=== PATIENT | female | born 1955 | race Two or more races ===

== ENCOUNTER 2018-12-04 12:09 | Inpatient (IN) | payer OTHER ==
[~2018-12-04] VITALS: Ht 160 cm; Wt 65.8 kg
[2018-12-04] MEDS ORDERED: ASPirin 81 mg TAB PO ONE (12:30)
[2018-12-04] MEDS ORDERED: EPINEPHrine HCL 1 MG/1 ML AMP ONE (12:34)
[2018-12-04] MEDS ORDERED: ATROPINE SULFATE 1 MG/1 ML VIAL ONE (12:34)
[2018-12-04] MEDS ORDERED: ANGIOMAX 250 MG VIAL IV ONE (12:34)
[2018-12-04] MEDS ORDERED: SODIUM CHL 0.9% 50 ML ONE (12:35)
[2018-12-04] MEDS ORDERED: fentaNYL CITRATE 100 MCG/2 ML VL ONE (12:35)
[2018-12-04] MEDS ORDERED: DOPamine 1600MCG/ML D5W 0 ML IV ONE (12:35)
[2018-12-04] MEDS ORDERED: MIDAZOLAM HCL 1MG/1ML-2 ML VIAL ONE (12:35)
[2018-12-04] MEDS ORDERED: LIDOCAINE 2%HCL (LOCAL ANESTH.) INJ 20ML MDV ONE (12:36)
[2018-12-04] MEDS ORDERED: IOHEXOL 350 MG/ML 100ML IJ ONE (12:36)
[2018-12-04] MEDS ORDERED: EPTIFIBATIDE INJ (2MG/ML) 10ML VIAL IV ONE (13:07)
[2018-12-04] MEDS ORDERED: TICAGRELOR 90 MG TAB ONE ×2 (13:17→22:03)
[2018-12-04 13:40] LABS: Basophils # (auto) 0.1 uL; Basophils % (auto) 0.6 % (0.0-2.0); Eosinophils # (auto) 0.2 uL; Eosinophils % (auto) 1.9 % (0.0-7.0); Hematocrit 29.2 % (36.0-46.0); Hemoglobin 9.8 g/dL (12.2-16.2); Lymphocytes # (auto) 1.7 uL; Lymphocytes % (auto) 21.7 % (10.0-50.0); Mean Corpuscular Hemoglobin 31.2 pg (28.0-32.0); Mean Corpuscular Hgb Conc. 33.3 g/dL (32.0-36.0); Mean Corpuscular Volume 93.6 fL (80.0-100.0); Monocytes # (auto) 0.4 uL; Monocytes % (auto) 5.2 % (0.0-12.0); Neutrophils # (auto) 5.7 uL; Neutrophils % (auto) 70.6 % (37.0-80.0); Nucleated Red Blood Cells % 0.1 %; Platelet Count (auto) 248 10^3/uL (140-450); Red Blood Cells 3.13 10^6/uL (4.0-5.20); Red Cell Distribution Width 13.5 % (11.8-14.3)
[2018-12-04] MEDS ORDERED: MORPHINE SULF INJ 2 MG/ML SYRINGE 1ML IV PRN ×2 (13:45)
[2018-12-04] MEDS ORDERED: ACETAMINOPHEN 500 MG TAB PO PRN (13:45)
[2018-12-04] MEDS ORDERED: DEXTROSE (50%) 50ML SYRG IV PRN (13:45)
[2018-12-04] MEDS ORDERED: ONDANSETRON HCL 4 MG/2 ML VIAL IV PRN (13:45)
[2018-12-04] MEDS ORDERED: NITROGLYCERIN 0.4 MG SL TAB SL PRN (13:45)
[2018-12-04] MEDS ORDERED: hydrALAZINE HCL 20 MG/ML VL IV PRN (13:45)
[2018-12-04] MEDS ORDERED: HYDROcodone-ACET 5/325MG TAB PO PRN (13:45)
[2018-12-04 14:01] LABS: Calcium 7.5 mg/dL (8.5-10.1); Magnesium 1.8 mg/dL (1.6-2.6); Potassium 4.1 mmol/L (3.5-5.1)
--- NOTE | 2018-12-04 14:10 | NUR ---
Received report from Web Site Project Manager ANTIONE Shultz, patient has to lay flat in bed for two hours post PTCA with stent placement.
[2018-12-04 14:17] LABS: BUN/Creatinine Ratio 21.8
[2018-12-04 14:18] LABS: Bilirubin, Total 0.2 mg/dL (0.2-1.0); Total Protein 6.1 g/dL (6.4-8.2)
[2018-12-04 14:20] LABS: Cholesterol 162 mg/dL (< 200); HDL Cholesterol 37 mg/dL (40-59); Triglycerides 78 mg/dL (< 150)
[2018-12-04 14:21] LABS: LDL Cholesterol 120 mg/dL (< 100)
[2018-12-04 15:00] VITALS: BP 147/72
--- NOTE | 2018-12-04 15:00 | NUR ---
Patient from Extension Service Specialist post PTCA and stent placement to the right coronary artery. Patient to lay flat in bed for two hours. Patient refused bedpan. Patient made aware she has pad cair underneath, she can urinate and she will be cleaned when she's done.
--- NOTE | 2018-12-04 15:00 | NUR ---
Dressing on right groin clean, dry and intact.
--- NOTE | 2018-12-04 15:20 | NUR ---
Family member at bedside.
[2018-12-04] MEDS: SODIUM CHLORIDE 0.9% 1,000 ML IV SCH (15:27)
--- NOTE | 2018-12-04 16:20 | NUR ---
Patient does not have her list of home medications.
[2018-12-04] MEDS: ACCU-CHEK COMFORT CURVE STRIP VI SCH ×2 (16:23→22:00)
[2018-12-04] MEDS: InsuLIN REG 1unit/0.01ml Soln (100units/ml) SC SCH ×2 (16:23→22:45)
[2018-12-04 16:26] LABS: INR 1.14 (0.9-1.15)
--- NOTE | 2018-12-04 16:35 | NUR ---
Assisted the patient to ambulate to the bathroom. Instructed the patient to pull the red string when she's done.
--- NOTE | 2018-12-04 16:45 | NUR ---
Marce Mccray called back. PERFORMANCE TEST ARCHITECT made aware patient's Trop I = 0.602*H, patient able to ambulate to the bathroom with assist, no complaints of chest pain, urinated at least 2 times on pad cair, one time in the bathroom. Dressing on right groin clean, dry and intact. Will continue to monitor.
--- NOTE | 2018-12-04 18:00 | NUR ---
Patient requested to be off from NS drip at this time.
[2018-12-04 20:00] VITALS: BP 107/58
[2018-12-04 21:53] VITALS: BP 107/58
[2018-12-04] MEDS: TIMOLOL MAL 0.5% OPTH(EYE) SOL 5ML EACHEYE SCH (21:55)
[2018-12-04] MEDS: METOPROLOL TARTRATE 25 MG TAB PO SCH (21:56)
[2018-12-04] MEDS ORDERED: ATORVASTATIN 20 MG TAB PO SCH (22:00)
--- NOTE | 2018-12-04 22:01 | NUR ---
LAB RESULT: NOTIFIED Dylan WANG NP RE: CRITICAL TROPONIN RESULT OF 1.350. PER WEB PRODUCTION MANAGER IT'S EXPECTED AFTER [facility]. NO NEW ORDER WAS GIVEN. CONTINUE CARE.
[2018-12-04] MEDS: TICAGRELOR 90 MG TAB PO SCH (22:10)
[2018-12-05] MEDS: SODIUM CHLORIDE 0.9% 1,000 ML IV SCH ×2 (04:01→10:00)
[2018-12-05 05:10] VITALS: BP 108/56
[2018-12-05] MEDS: InsuLIN REG 1unit/0.01ml Soln (100units/ml) SC SCH ×2 (06:17→11:31)
[2018-12-05] MEDS: ACCU-CHEK COMFORT CURVE STRIP VI SCH ×2 (06:17→11:30)
[2018-12-05 07:17] LABS: Basophils # (auto) 0.1 uL; Basophils % (auto) 0.9 % (0.0-2.0); Eosinophils # (auto) 0.1 uL; Hematocrit 34.5 % (36.0-46.0); Hemoglobin 11.4 g/dL (12.2-16.2); Lymphocytes # (auto) 1.4 uL; Lymphocytes % (auto) 20.4 % (10.0-50.0); Mean Corpuscular Volume 94.2 fL (80.0-100.0); Monocytes # (auto) 0.7 uL; Monocytes % (auto) 10.1 % (0.0-12.0); Neutrophils # (auto) 4.6 uL; Neutrophils % (auto) 66.6 % (37.0-80.0); Platelet Count (auto) 263 10^3/uL (140-450); Red Blood Cells 3.66 10^6/uL (4.0-5.20); Red Cell Distribution Width 13.6 % (11.8-14.3)
[2018-12-05 07:35] LABS: Partial Thromboplastin Time 22.8 sec (23.64-32.05)
[2018-12-05 07:37] LABS: Potassium 3.7 mmol/L (3.5-5.1)
--- NOTE | 2018-12-05 07:45 | NUR ---
Patient in bed, awake, oriented x4. No acute distress noted. Patient refused NS drip at this time.
[2018-12-05 07:51] LABS: BUN/Creatinine Ratio 13.7; Calcium 8.7 mg/dL (8.5-10.1)
--- NOTE | 2018-12-05 08:00 | NUR ---
Skate Maker Niesha Glynn from [facility] (P# [phone]) called regarding the plan of care for the patient. Niesha Glynn said to call her when the doctor comes.
[2018-12-05 08:30] VITALS: BP 119/58
[2018-12-05] MEDS ORDERED: FAMOTIDINE 20 MG TAB PO SCH (10:00)
[2018-12-05] MEDS ORDERED: ASPirin-EC 81 mg tab PO SCH (10:00)
[2018-12-05] MEDS ORDERED: LISINOPRIL 10 MG TAB PO SCH (10:00)
--- NOTE | 2018-12-05 10:00 | NUR ---
Patient stated the medications she remembers she takes at home: Glipizide, Metformin, Lisinopril, Amlodipine, Aspirin.
[2018-12-05] MEDS: TICAGRELOR 90 MG TAB PO SCH (10:10)
[2018-12-05] MEDS: METOPROLOL TARTRATE 25 MG TAB PO SCH (10:10)
[2018-12-05] MEDS: TIMOLOL MAL 0.5% OPTH(EYE) SOL 5ML EACHEYE SCH (10:15)
--- NOTE | 2018-12-05 10:15 | NUR ---
Patient refused NS drip at this time. at bedside.
[2018-12-05] MEDS ORDERED: AML5T PO (10:21)
[2018-12-05] MEDS ORDERED: LISI2.5T47 PO (10:21)
[2018-12-05] MEDS ORDERED: GLIP-115 PO (10:21)
[2018-12-05] MEDS ORDERED: METF-371 PO (10:21)
[2018-12-05] MEDS ORDERED: ASPI-378 PO (10:24)
--- NOTE | 2018-12-05 10:48 | NUR ---
Hamper Maker Niesha Hines from [facility] called again. Niesha Hines made aware we're waiting for the hospitalist to see the patient. Niesha Hines to call back.
--- NOTE | 2018-12-05 10:49 | NUR ---
Paged Dr. Pan. Waiting for MD to call back.
--- NOTE | 2018-12-05 10:50 | NUR ---
Dr. Pan called back. made aware James called back regarding the plan of care for the patient. Dr. Pan to see the patient.
--- NOTE | 2018-12-05 11:35 | NUR ---
Dr. Zavala came over to see the patient. ordered patient okay to go home as per Cardiology, patient should follow up with her Steam Turbine Operator at [facility].
[2018-12-05] MEDS ORDERED: TICA90TA PO (11:36)
[2018-12-05] MEDS ORDERED: ASP81EC PO (11:36)
[2018-12-05] MEDS ORDERED: ATOR40TA52 PO (11:36)
[2018-12-05] MEDS ORDERED: NITR0.4S29 SL (11:36)
[2018-12-05] MEDS ORDERED: LISI10TA6 PO (11:36)
[2018-12-05] MEDS ORDERED: MET25T PO (11:36)
--- NOTE | 2018-12-05 11:39 | NUR ---
Called [facility] ([phone]). Spoke with Catalina of Case Management. Informed Catalina that as per Dr. Zavala, patient is okay to go home, patient needs to see a Casing Worker at [facility] in a week for follow up appointment. Catalina said they will call the patient for the appointment. Waiting for Dr. Pan to see the patient for discharge orders.
[2018-12-05 12:30] VITALS: BP 124/71
--- NOTE | 2018-12-05 12:30 | NUR ---
Dr. Pan to discharge the patient.
--- NOTE | 2018-12-05 12:56 | NUR ---
Family member took the prescription to take to [facility] for the Brilinta. Patient should take the second dose of Brilinta at 1000 pm as ordered.
[2018-12-05 13:14] VITALS: BP 124/71
[2018-12-05 13:32] VITALS: BP 124/71
--- NOTE | 2018-12-05 14:00 | NUR ---
Patient has the prescription refill including Brilinta picked up by patient's son from [facility]. Instructed the patient she has to take the second dose of Brilinta 1 tablet tonight at 10:00 pm, patient said she will be asleep by that time, she will take the medication at 8:00 pm tonight. Instructed the patient that she will resume Metformin on December 07, 2018 as ordered due to cardiac cath.
--- NOTE | 2018-12-05 14:40 | NUR ---
Discharge instructions given as ordered. Encourage to follow up with PMD as instructed. All questions and concerns addressed. Patient verbalized understanding. Medication reconciliation form completed and copy given to patient. IV removed with catheter intact, pressure dressing applied. Telemetry unit returned to [facility]. Patient taken to vehicle via wheelchair with all personal belongings, accompanied by staff and family member. No distress noted at time of departure.
--- NOTE | 2018-12-05 15:10 | NUR ---
Called [facility]. Informed Dialysis Rn Tamara that patient was discharged at 1440 pm today, patient expects a call from [facility] of her follow up appointment with her Storage Brine Worker in week.
== END 2018-12-05 14:40 | disposition home or self-care (01) | DRG 246 ==
LOC: EDBD 12:09 → ER 12:14 → CATH 12:34 → TELE-EAST 12:35
PROVIDERS: ADMIT Internal Medicine; ATTEND Internal Medicine
PROC: 4A023N7 Measurement of Cardiac Sampling and Pressure, Left Heart, Percutaneous Approach (ICD-10-PCS; principal; 2018-12-04)
PROC: 027035Z Dilation of Coronary Artery, One Artery with Two Drug-eluting Intraluminal Devices, Percutaneous Approach (ICD-10-PCS; 2018-12-04)
PROC: B2111ZZ Fluoroscopy of Multiple Coronary Arteries using Low Osmolar Contrast (ICD-10-PCS; 2018-12-04)
PROC: B2151ZZ Fluoroscopy of Left Heart using Low Osmolar Contrast (ICD-10-PCS; 2018-12-04)
DX: I21.3 ST elevation (STEMI) myocardial infarction of unspecified site (principal); I50.31 Acute diastolic (congestive) heart failure; E44.1 Mild protein-calorie malnutrition; E78.5 Hyperlipidemia, unspecified; Z68.25 Body mass index [BMI] 25.0-25.9, adult; D64.9 Anemia, unspecified; E11.9 Type 2 diabetes mellitus without complications; I11.0 Hypertensive heart disease with heart failure; I25.10 Atherosclerotic heart disease of native coronary artery without angina pectoris; K21.9 Gastro-esophageal reflux disease without esophagitis; J44.9 Chronic obstructive pulmonary disease, unspecified; I25.2 Old myocardial infarction; Z79.84 Long term (current) use of oral hypoglycemic drugs; Z82.49 Family history of ischemic heart disease and other diseases of the circulatory system; Z95.5 Presence of coronary angioplasty implant and graft
CPT/HCPCS: 36415; 71045; 80048; 80053; 80061; 82962; 83036; 83735; 84484; 85025; 85610; 85730; 93005; 93306; 94761; 99152; C1874; C1887; G0378; J0171; J0461; J1815; J2250